=== PATIENT | male | born 1995 | race Caucasian/White ===

== ENCOUNTER 2023-07-05 11:20 | Emergency (ER) | payer OTHER ==
[2023-07-05] MEDS ORDERED: Ibuprofen 800 MG Tab PO ONE (12:35)
[2023-07-05] MEDS ORDERED: Acetaminophen 325 MG Tab PO ONE (12:35)
== END 2023-07-05 13:05 | disposition home or self-care (01) ==
LOC: JD.ED 11:20
DX: S62.015A Nondisplaced fracture of distal pole of navicular [scaphoid] bone of left wrist, initial encounter for closed fracture (principal); F17.210 Nicotine dependence, cigarettes, uncomplicated; Z86.16 Personal history of COVID-19; W18.30XA Fall on same level, unspecified, initial encounter; Y92.009 Unspecified place in unspecified non-institutional (private) residence as the place of occurrence of the external cause
CPT/HCPCS: 29125; 73110; 73130; 99283; A9270